=== PATIENT | female | born 1980 | race Caucasian/White ===

== ENCOUNTER 2020-08-07 10:36 | Outpatient (CLI) | payer OTHER, SELFPAY ==
[2020-08-07 12:35] LABS: Erythrocyte Sedimentation Rate 7 mm/hr (0-15)
[2020-08-07 12:37] LABS: Creatine Phosphokinase 65 U/L (26-192); Free T4 Free Thyroxine 1.24 ng/dL (0.82-1.77); Magnesium 2.2 mg/dL (1.7-2.3); Potassium 4.3 mmol/L (3.5-5.1); Thyroid Stimulating Hormone 1.36 uIU/mL (0.27-4.20)
[2020-08-08 12:48] LABS: Aldolase 3.8 U/L (< OR = 8.1)
[2020-08-08 15:23] LABS: Anti-Nuclear Antibody Screen NEGATIVE (NEGATIVE)
== END 2020-08-07 10:37 | disposition home or self-care (01) ==
PROVIDERS: PCP Family Medicine; Visit Provider Internal Medicine Rheumatology
DX: M79.10 Myalgia, unspecified site (principal); L40.0 Psoriasis vulgaris; E55.9 Vitamin D deficiency, unspecified; R53.83 Other fatigue
CPT/HCPCS: 36415; 82085; 82550; 83735; 84100; 84132; 84439; 84443; 85651; 86038; 99204

== ENCOUNTER 2020-08-27 12:00 | Outpatient (CLI) | payer OTHER, SELFPAY | END 2020-08-27 12:01 | disposition home or self-care (01) | LOC: SLEEP 08-28 09:09 | PROVIDERS: PCP Family Medicine; Visit Provider Family Medicine | DX: G47.33 Obstructive sleep apnea (adult) (pediatric) (principal) | CPT/HCPCS: G0399 ==

== ENCOUNTER → 2020-09-01 13:33 | Outpatient (BNVA) | payer OTHER, SELFPAY | PROVIDERS: PCP Family Medicine; Visit Provider Psychiatry & Neurology Neurology | DX: G56.01 Carpal tunnel syndrome, right upper limb (principal); M62.81 Muscle weakness (generalized) | CPT/HCPCS: 95886; 95910 ==

== ENCOUNTER → 2020-09-11 14:51 | Outpatient (BNVA) | payer OTHER, SELFPAY | PROVIDERS: PCP Family Medicine; Visit Provider Internal Medicine Rheumatology | DX: M79.7 Fibromyalgia (principal); L40.0 Psoriasis vulgaris; G47.33 Obstructive sleep apnea (adult) (pediatric); R53.83 Other fatigue | CPT/HCPCS: 99214 ==